=== PATIENT | female | born 1960 | race Hispanic/Latino ===

== ENCOUNTER → 2021-12-18 | Outpatient (CLI) | payer OTHER, MEDICARE | END | disposition home or self-care (01) | LOC: RAH 08:36 | PROVIDERS: ATTEND Internal Medicine | DX: K76.0 Fatty (change of) liver, not elsewhere classified (principal) | CPT/HCPCS: 76700 ==

== ENCOUNTER → 2022-04-25 | Outpatient (CLI) | payer OTHER, MEDICARE | END | disposition home or self-care (01) | LOC: RAH 08:59 | PROVIDERS: ATTEND Internal Medicine Gastroenterology | DX: R10.13 Epigastric pain (principal); R14.0 Abdominal distension (gaseous); R11.0 Nausea | CPT/HCPCS: 74240 ==

== ENCOUNTER → 2022-08-05 | Outpatient (CLI) | payer OTHER, MEDICARE | END | disposition home or self-care (01) | LOC: RAH 11:45 | PROVIDERS: ATTEND Otolaryngology Plastic Surgery within the Head & Neck | DX: J38.02 Paralysis of vocal cords and larynx, bilateral (principal); R13.10 Dysphagia, unspecified | CPT/HCPCS: 74230; 92611 ==

== ENCOUNTER → 2022-08-13 | Outpatient (CLI) | payer OTHER, MEDICARE ==
[~2022-08-13] MED LIST: LIDOCAINE HCL MPF 1% 5ML VIAL ONE
[2022-08-13 10:33] LABS: INR 0.94 (0.85-1.15); PROTHROMBIN TIME 10.3 SEC (9.6-11.6)
[2022-08-13 10:35] LABS: PARTIAL THROMBOPLASTIN TIME 26.9 SEC (26.3-35.5)
== END | disposition home or self-care (01) ==
LOC: RAH 09:40
PROVIDERS: ATTEND Otolaryngology Plastic Surgery within the Head & Neck
DX: C76.0 Malignant neoplasm of head, face and neck (principal); Z79.01 Long term (current) use of anticoagulants; Z79.899 Other long term (current) drug therapy
CPT/HCPCS: 20206; 85610; 85730; 36415; 76942; J3490; A4215; 20200; 38505

== ENCOUNTER → 2024-03-30 | Outpatient (CLI) | payer OTHER, MEDICARE | END | disposition home or self-care (01) | LOC: RAH 12:51 | PROVIDERS: ATTEND Internal Medicine Gastroenterology | DX: R13.10 Dysphagia, unspecified (principal) | CPT/HCPCS: 74230; 92611 ==

== ENCOUNTER → 2024-08-19 | Outpatient (CLI) | payer OTHER, MEDICARE ==
[2024-08-19 12:48] LABS: CHOLESTEROL 158 mg/dL (<200); HDL CHOLESTEROL 70 mg/dL (35-85); LDL DIRECT 71 mg/dL (0-99); TRIGLYCERIDES 123 mg/dL (30-200)
== END | disposition home or self-care (01) ==
LOC: LAB 08-18 14:57
PROVIDERS: ATTEND Internal Medicine Cardiovascular Disease
DX: E78.5 Hyperlipidemia, unspecified (principal); Z79.899 Other long term (current) drug therapy
CPT/HCPCS: 36415; 80061

== ENCOUNTER → 2024-08-25 | Outpatient (CLI) | payer OTHER, MEDICARE ==
--- NOTE | 2024-08-25 13:50 | NUR ---
MBSS COMPLETED (OUTPATIENT). Pt presented with penetrations during the swallow with pudding and thin liquids via (attempted) continuous sips cleared with innate throat clears. No deep penetrations or aspirations observed. This may be patient's baseline. Recommend regular solids, thin liquids and pills whole with liquids as tolerated. MECHANICAL PENCILS ASSEMBLER reviewed results and recommendations with patient. MECHANICAL PENCILS ASSEMBLER educated patient on risks and consequences of aspiration. Speech therapy not warranted at this time. Mild pharyngeal dysphagia managed with compensatory strategies and likely patient's new baseline. All questions answered. Addendum: 08/25/[address] [facility] MATTHE[facility] Amended: Links added.
--- NOTE | 2024-08-25 15:25 | HMCIMG ---
MODIFIED BARIUM SWALLOW W CINE REASON: Aphagia, Dysphagia, oropharyngeal phase, Feeding difficulties, unspecified FINDINGS: Fluoroscopic assistance was provided to the speech pathologist while performing examination. For findings and dietary recommendations, refer to speech pathologist's report. FLUORO TIME: Fluoroscopy time 4.4 minutes. IMPRESSION: Modified barium swallow as described.
== END | disposition home or self-care (01) ==
LOC: RAH 13:16
PROVIDERS: ATTEND Internal Medicine Gastroenterology
DX: R13.12 Dysphagia, oropharyngeal phase (principal); R63.30 Feeding difficulties, unspecified; R13.0 Aphagia
CPT/HCPCS: 74230; 92611